=== PATIENT | female | born 1970 | race Caucasian/White ===

== ENCOUNTER → 2017-12-24 | Outpatient (CLI) | payer MEDICAID ==
[~2017-12-24] MED LIST: BUSPIRONE HCL10 MG PO; BUTALB-APAP-CA1 EACH PO; COMBIVENT INH; ESTRADIOL 1 MG T1 M1 PO; HYDROXYZINE HCL25 M1 PO; LAMICTAL 25 MG25 M1 PO; MOBIC15 MG PO; OMEPRAZOLE 20 M20 M1 PO; PROZAC20 MG PO; SINGULAIR 10 MG10 M1 PO; SYNTHROID150 MCG PO; TRAMADOL 50 MG50 MG PO; ZANAFLEX2 MG PO
[2017-12-24 10:34] LABS: ABSOLUTE EOSINOPHILS 0.1 thou/uL (0.0-0.7); ABSOLUTE LYMPHOCYTES 2.1 thou/uL (0.8-5.3); ABSOLUTE MONOCYTES 0.4 thou/uL (0.0-1.2); ABSOLUTE NEUTROPHILS 3.1 thou/uL (1.6-8.1); BASOPHILS 0.7 %; EOSINOPHILS 1.3 %; HEMATOCRIT 43.9 % (37.0-47.0); LYMPHOCYTES 37.4 %; MCHC 34.2 g/dL (28.0-37.0); MCV 96.5 fL (80.0-100.0); MONOCYTES 6.3 %; MPV 8.1 fl. (7.2-11.1); NUCLEATED RBCS 0 /100WBC; PLATELET COUNT* 240 thou/uL (150-400); POLYS 54.3 %; RBC 4.55 mil/uL (4.20-5.00); RDW-CV 14.4 % (10.5-14.5); WBC 5.7 thou/uL (4.0-11.0)
[2017-12-24 10:55] LABS: ALBUMIN 3.8 g/dL (3.4-5.0); CALCIUM 9.4 mg/dL (8.5-10.1); CREATININE 0.9 mg/dL (0.6-1.3); POTASSIUM 3.9 mmol/L (3.5-5.1); TOTAL BILIRUBIN 0.8 mg/dL (<0.1-1.0); TOTAL PROTEIN 8.6 g/dL (6.4-8.2)
== END ==
LOC: M.LAB 10:14
PROVIDERS: Family Medicine
DX: E03.9 Hypothyroidism, unspecified (principal)

== ENCOUNTER → 2018-01-13 | Outpatient (CLI) | payer MEDICAID ==
[2018-01-13 22:11] LABS: TESTOSTERONE 16 ng/dL (8-48)
== END ==
LOC: M.LAB 15:38
PROVIDERS: Family Medicine
DX: E03.9 Hypothyroidism, unspecified (principal); N95.1 Menopausal and female climacteric states

== ENCOUNTER → 2018-04-15 | Outpatient (CLI) | payer MEDICAID ==
[2018-04-15 16:14] LABS: HEMATOCRIT 40.1 % (37.0-47.0); HEMOGLOBIN 13.5 gm/dL (12.0-15.0); MCH 32.6 pg (26.0-34.0); MCHC 33.7 g/dL (28.0-37.0); MCV 96.6 fL (80.0-100.0); MPV 7.7 fl. (7.2-11.1); RBC 4.15 mil/uL (4.20-5.00); WBC 4.6 thou/uL (4.0-11.0)
[2018-04-15 16:25] LABS: APTT 27.3 Seconds (25.0-31.3); INR 0.9; PROTIME 9.4 Seconds (9.20-11.50)
== END ==
LOC: M.LAB 15:51
PROVIDERS: Family Medicine
DX: E03.9 Hypothyroidism, unspecified (principal); Z78.9 Other specified health status; F17.200 Nicotine dependence, unspecified, uncomplicated; Z72.89 Other problems related to lifestyle

== ENCOUNTER 2018-06-07 13:09 | Emergency (ER) | payer MEDICAID ==
[~2018-06-07] VITALS: Ht 162.6 cm; Wt 73.5 kg
[2018-06-07] MEDS ORDERED: SINGULAIR 10 MG10 M1 PO (13:22)
[2018-06-07] MEDS ORDERED: ESTRADIOL 1 MG T1 M1 PO (13:22)
[2018-06-07] MEDS ORDERED: MOBIC15 MG PO (13:23)
[2018-06-07] MEDS ORDERED: OMEPRAZOLE 20 M20 M1 PO (13:23)
[2018-06-07] MEDS ORDERED: BUSPIRONE HCL10 MG PO (13:23)
[2018-06-07] MEDS ORDERED: PROZAC20 MG PO (13:23)
[2018-06-07] MEDS ORDERED: LAMICTAL 25 MG25 M1 PO (13:24)
[2018-06-07] MEDS ORDERED: SYNTHROID150 MCG PO (13:24)
[2018-06-07] MEDS ORDERED: HYDROXYZINE HCL25 M1 PO (13:25)
[2018-06-07] MEDS ORDERED: COMBIVENT INH (13:25)
[2018-06-07] MEDS ORDERED: ZANAFLEX2 MG PO (13:26)
[2018-06-07] MEDS ORDERED: TRAMADOL 50 MG50 MG PO (13:26)
[2018-06-07] MEDS ORDERED: BUTALB-APAP-CA1 EACH PO (14:03)
[2018-06-07 14:19] VITALS: BP 131/68
== END 2018-06-07 14:20 | disposition home or self-care (01) ==
LOC: M.ERS 13:09
DX: S00.03XA Contusion of scalp, initial encounter (principal); H27.10 Unspecified dislocation of lens; Z90.710 Acquired absence of both cervix and uterus; W22.8XXA Striking against or struck by other objects, initial encounter; Y92.89 Other specified places as the place of occurrence of the external cause; Y93.89 Activity, other specified; Y99.8 Other external cause status; F17.210 Nicotine dependence, cigarettes, uncomplicated; Z88.2 Allergy status to sulfonamides

== ENCOUNTER → 2018-06-07 | Outpatient (CLI) | payer MEDICAID | LOC: M.LAB 12:50 | DX: E03.9 Hypothyroidism, unspecified (principal) ==

== ENCOUNTER 2018-06-20 21:41 | Emergency (ER) | payer MEDICAID ==
[~2018-06-20] VITALS: Ht 162.6 cm; Wt 67.6 kg
[2018-06-20 22:09] VITALS: BP 135/70
== END 2018-06-20 22:12 | disposition home or self-care (01) ==
LOC: M.ERS 21:41
DX: S61.011A Laceration without foreign body of right thumb without damage to nail, initial encounter (principal); E03.9 Hypothyroidism, unspecified; Z90.710 Acquired absence of both cervix and uterus; Z88.2 Allergy status to sulfonamides; W26.0XXA Contact with knife, initial encounter; Y93.89 Activity, other specified; Y92.89 Other specified places as the place of occurrence of the external cause; Y99.8 Other external cause status

== ENCOUNTER → 2018-10-18 | Outpatient (CLI) | payer MEDICAID | LOC: M.LAB 12:23 | DX: E03.9 Hypothyroidism, unspecified (principal) ==

== ENCOUNTER → 2018-12-06 | Outpatient (CLI) | payer MEDICAID ==
[2018-12-06 09:08] LABS: HEMATOCRIT 39.8 % (37.0-47.0); HEMOGLOBIN 13.2 gm/dL (12.0-15.0); MCH 33.5 pg (26.0-34.0); MCHC 33.1 g/dL (28.0-37.0); MPV 7.7 fl. (7.2-11.1); RBC 3.94 mil/uL (4.20-5.00); RDW-CV 13.4 % (10.5-14.5); WBC 4.3 thou/uL (4.0-11.0)
[2018-12-06 09:18] LABS: ALBUMIN 3.4 g/dL (3.4-5.0); CALCIUM 9.2 mg/dL (8.5-10.1); CREATININE 0.8 mg/dL (0.6-1.3); POTASSIUM 4.2 mmol/L (3.5-5.1); TOTAL BILIRUBIN 0.4 mg/dL (<0.1-1.0); TOTAL PROTEIN 7.6 g/dL (6.4-8.2)
== END ==
LOC: M.LAB 08:41
PROVIDERS: Family Medicine
DX: R10.9 Unspecified abdominal pain (principal); E03.9 Hypothyroidism, unspecified

== ENCOUNTER → 2018-12-10 | Outpatient (CLI) | payer MEDICAID | LOC: M.ULTRA 08:43 | DX: R10.9 Unspecified abdominal pain (principal) ==

== ENCOUNTER → 2019-01-14 | Outpatient (CLI) | payer MEDICAID | LOC: M.NUC 07:08 | DX: R10.11 Right upper quadrant pain (principal) ==

== ENCOUNTER 2019-02-03 15:38 | Emergency (ER) | payer MEDICAID ==
[~2019-02-03] VITALS: Ht 162.6 cm; Wt 73.5 kg
[2019-02-03] MEDS ORDERED: ULTRAM 50MG TAB50 MG PO (15:43)
[2019-02-03] MEDS ORDERED: ABILIFY 5 MG TAB5 M1 PO (15:44)
[2019-02-03] MEDS ORDERED: PROZAC20 MG PO (15:44)
[2019-02-03] MEDS ORDERED: COMBIVENT INH (15:45)
[2019-02-03] MEDS ORDERED: HYDROXYZINE HCL25 M1 PO (15:47)
[2019-02-03] MEDS ORDERED: ZANAFLEX4 MG PO (15:48)
[2019-02-03 16:16] LABS: ABSOLUTE LYMPHOCYTES 1.6 thou/uL (0.8-5.3); ABSOLUTE MONOCYTES 0.4 thou/uL (0.0-1.2); ABSOLUTE NEUTROPHILS 4.3 thou/uL (1.6-8.1); BASOPHILS 0.6 %; EOSINOPHILS 0.4 %; HEMATOCRIT 39.8 % (37.0-47.0); HEMOGLOBIN 13.6 gm/dL (12.0-15.0); LYMPHOCYTES 25.4 %; MCH 33.9 pg (26.0-34.0); MCHC 34.2 g/dL (28.0-37.0); MCV 99.2 fL (80.0-100.0); NUCLEATED RBCS 0 /100WBC; PLATELET COUNT* 262 thou/uL (150-400); POLYS 67.6 %; RBC 4.01 mil/uL (4.20-5.00); RDW-CV 13.5 % (10.5-14.5); WBC 6.3 thou/uL (4.0-11.0)
[2019-02-03 16:30] LABS: URINE BILIRUBIN NEGATIVE (Negative); URINE BLOOD NEGATIVE (Negative); URINE CLARITY CLEAR; URINE COLOR YELLOW; URINE GLUCOSE-RANDOM NEGATIVE (Negative); URINE KETONES NEGATIVE (Negative); URINE LEUKOCYTES-REFLEX NEGATIVE (Negative); URINE NITRITE-REFLEX NEGATIVE (Negative); URINE PROTEIN NEGATIVE (Negative); URINE SPECIFIC GRAVITY >= 1.030 (1.005-1.030); URINE UROBILINOGEN 0.2 E.U./dl (0.2-1.0)
[2019-02-03 16:34] LABS: ANION GAP 7 mmol/L (7-16); BUN 16 mg/dL (7-18); CALCIUM 9.5 mg/dL (8.5-10.1); CHLORIDE 104 mmol/L (98-107); CO2 27 mmol/L (21-32); CREATININE 0.9 mg/dL (0.6-1.3); GLUCOSE 111 mg/dL (70-99); POTASSIUM 3.5 mmol/L (3.5-5.1); SODIUM 138 mmol/L (136-145)
[2019-02-03 16:39] LABS: ALBUMIN 3.6 g/dL (3.4-5.0); ALKALINE PHOSPHATASE 108 U/L (46-116); LIPASE 67 U/L (73-393); SGOT 16 U/L (15-37); SGPT 19 U/L (30-65); TOTAL BILIRUBIN 0.6 mg/dL (<0.1-1.0); TOTAL PROTEIN 8.1 g/dL (6.4-8.2); TROPONIN-I LEVEL <0.06 ng/mL (<0.06)
[2019-02-03] MEDS ORDERED: ZOFRAN ODT4 MG DISSOLVE (17:45)
[2019-02-03] MEDS ORDERED: NORCO 5-325 TA1 EAC1 PO (17:45)
[2019-02-03 18:23] VITALS: BP 106/64
--- NOTE | 2019-02-04 16:39 | EKG ---
[place] [address] ELECTROCARDIOGRAM REPORT Name: ESME HAAS Room: [facility]#: [id number] Admission: 02/03/19 Attend Phys: Discharge: 02/03/19 Date of : 70 Report #: [id number] THIS REPORT FOR: //name// [facility] ED Test Date: 2019-02-03 Test Time: 16:04:26 Pat Name: ESME HAAS Department: Room: Gender: F Sql Report Developer: MICHELLE : 1970 Requested By: Antonio Zazueta Order Number: [id number] MD: Aaron Greene Measurements Intervals [place] Rate: 74 P: 23 FL: 146 QRS: 34 QRSD: 84 T: 39 QT: 420 QTc: 466 Interpretive Statements Sinus rhythm Nonspecific T abnormalities, anterior leads, consider ischemia No previous ECG available for comparison Electronically Signed On 02-04-2019 16:38:55 CDT by Aaron Greene [email or web address] <ELECTRONICALLY SIGNED> By: Aaron Greene MD, [facility] 02/04/19 1638 1604 1604 Aaron Greene MD, FACC /EPI
== END 2019-02-03 18:23 | disposition home or self-care (01) ==
LOC: M.ERS 15:38
PROVIDERS: Emergency Medicine Emergency Medical Services
DX: R10.12 Left upper quadrant pain (principal); E03.9 Hypothyroidism, unspecified; F17.210 Nicotine dependence, cigarettes, uncomplicated; Z90.710 Acquired absence of both cervix and uterus; Z88.2 Allergy status to sulfonamides

== ENCOUNTER 2019-05-17 13:13 | Inpatient (IN) | payer MEDICAID ==
[~2019-05-17] VITALS: Ht 160 cm; Wt 61.2 kg
[~2019-05-17 13:13] MED LIST changes: +ABILIFY 5 MG TAB5 M1 PO; +HYDROXYZINE HCL PO; +NORCO 5-325 TA1 EAC1 PO; +ULTRAM 50MG TAB50 MG PO; +ZANAFLEX4 MG PO; +ZOFRAN ODT4 MG DISSOLVE
[2019-05-17 13:21] VITALS: BP 124/76
[2019-05-17 14:57] LABS: ABSOLUTE LYMPHOCYTES 1.5 thou/uL (0.8-5.3); ABSOLUTE MONOCYTES 0.5 thou/uL (0.0-1.2); BASOPHILS 0.5 %; EOSINOPHILS 0.2 %; HEMATOCRIT 42.5 % (37.0-47.0); HEMOGLOBIN 14.6 gm/dL (12.0-15.0); LYMPHOCYTES 14.5 %; MCH 33.7 pg (26.0-34.0); MCHC 34.3 g/dL (28.0-37.0); MCV 98.2 fL (80.0-100.0); MPV 8.1 fl. (7.2-11.1); NUCLEATED RBCS 0 /100WBC; PLATELET COUNT* 280 thou/uL (150-400); POLYS 79.8 %; RBC 4.33 mil/uL (4.20-5.00); RDW-CV 13.5 % (10.5-14.5); WBC 10.1 thou/uL (4.0-11.0)
[2019-05-17 14:59] LABS: URINE BILIRUBIN NEGATIVE (Negative); URINE BLOOD NEGATIVE (Negative); URINE CLARITY CLEAR; URINE COLOR YELLOW; URINE GLUCOSE-RANDOM NEGATIVE (Negative); URINE KETONES NEGATIVE (Negative); URINE LEUKOCYTES-REFLEX NEGATIVE (Negative); URINE NITRITE-REFLEX NEGATIVE (Negative); URINE PROTEIN NEGATIVE (Negative); URINE UROBILINOGEN 0.2 E.U./dl (0.2-1.0)
[2019-05-17 15:08] LABS: CALCIUM 9.3 mg/dL (8.5-10.1); CREATININE 1.2 mg/dL (0.6-1.3); POTASSIUM 5.4 mmol/L (3.5-5.1)
[2019-05-17 15:13] LABS: ALBUMIN 3.7 g/dL (3.4-5.0); TOTAL BILIRUBIN 0.5 mg/dL (<0.1-1.0); TOTAL PROTEIN 8.5 g/dL (6.4-8.2)
[2019-05-17 16:00] VITALS: BP 152/88
[2019-05-17 16:55] VITALS: BP 147/92
[2019-05-17 19:48] VITALS: BP 116/66
[2019-05-18 08:00] VITALS: BP 116/52
--- NOTE | 2019-05-18 14:24 | EKG ---
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
[2019-05-18 20:10] VITALS: BP 126/64
[2019-05-19 07:50] VITALS: BP 156/74
[2019-05-19 14:28] VITALS: BP 156/74
[2019-05-27] MEDS ORDERED: ROXICODONE5 M2 PO (15:28)
[2019-05-27] MEDS ORDERED: ASPIRIN325 PO (15:34)
== END 2019-05-19 14:50 | disposition home or self-care (01) | DRG 563 ==
LOC: M.ERS 13:13 → M.ORTHSURG 15:09 → M.TBA-ER 15:09 → M.ORTHSURG 16:44
PROVIDERS: Nurse Practitioner Family; ADMIT Family Medicine
PROC: 2W3TX1Z Immobilization of Left Foot using Splint (ICD-10-PCS; principal; 2019-05-17)
DX: S82.852A Displaced trimalleolar fracture of left lower leg, initial encounter for closed fracture (principal); F11.20 Opioid dependence, uncomplicated; H54.62 Unqualified visual loss, left eye, normal vision right eye; E03.9 Hypothyroidism, unspecified; W18.39XA Other fall on same level, initial encounter; F17.210 Nicotine dependence, cigarettes, uncomplicated; G89.29 Other chronic pain; Z98.42 Cataract extraction status, left eye; Z90.710 Acquired absence of both cervix and uterus; Z98.41 Cataract extraction status, right eye; Z79.899 Other long term (current) drug therapy; Z88.2 Allergy status to sulfonamides; X50.1XXA Overexertion from prolonged static or awkward postures, initial encounter; Y93.89 Activity, other specified; Y92.89 Other specified places as the place of occurrence of the external cause; Y99.8 Other external cause status

== ENCOUNTER → 2019-05-27 | Day surgery (SDC) | payer MEDICAID ==
[~2019-05-27] MED LIST changes: +ASPIRIN325 PO; +ROXICODONE5 M2 PO
--- NOTE | ~2019-05-27 | OP ---
[address] [address] OPERATIVE REPORT Name: ESME HAAS Room: [facility]#: [id number] Admission: 05/27/19 Attend Phys: Poonam Carl DO Discharge: Date of : 70 Report #: [id number] THIS REPORT FOR: //name// CC: Poonam Jaime DICTATED BY: Theodore Oseguera DO DATE OF SERVICE: 05/27/2019 Theodore Oseguera DO, dictating operative report for Dr. Poonam Carl. PREOPERATIVE DIAGNOSIS: Left trimalleolar ankle fracture dislocation. POSTOPERATIVE DIAGNOSIS: Left trimalleolar ankle fracture dislocation. SURGEON: Poonam Carl DO CAR SHUNTER: Theodore Oseguera DO OPERATIONS PERFORMED: 1. Open reduction and internal fixation of left posterior malleolus. 2. Open reduction and internal fixation of left lateral malleolus. 3. Open reduction and internal fixation of left medial malleolus. 4. Intraoperative fluoroscopy less than 1 hour. ANESTHESIA TYPE: General with popliteal block and post-procedural local administration. ESTIMATED BLOOD LOSS: 10 mL. SPECIMENS REMOVED: None. COMPLICATIONS: None. ANTIBIOTICS: A 2 grams Ancef preoperatively. TOURNIQUET: 95 minutes at 250 mmHg. IMPLANTS: Arthrex one-third tubular plate and posterolateral distal fibular locking plate and 4.0 cannulated screw. INDICATIONS FOR PROCEDURE: The patient is a pleasant 49-year-old female, who unfortunately on 05/17/2019 had a fall resulting in a left ankle injury. Evaluation at the [facility] Emergency Department showed a left trimalleolar ankle fracture dislocation. This was reduced in the Emergency Room [address] [place] [address] OPERATIVE REPORT Name: ESME HAAS Room: [facility].#: [id number] Admission: 05/27/19 Attend Phys: Poonam Carl DO Discharge: Date of : 70 Report #: [id number] and she filled up with us as an outpatient. Appropriate time was allotted for soft tissue swelling resides in the ankle. Skin was wrinkling appropriately in her most recent clinic followup. Recommendation was made for surgical fixation of the left ankle. We discussed the indications for procedure and our options including nonoperative management and the risks and benefits of the surgery including but not limited to damage neurovascular structures, postoperative infection, possible failure of implants, possible need for repeat surgery in the future, positive postoperative debility secondary to ankle injury, continuation of pain, postoperative DVT, pulmonary embolism, MT, or any other imponderables secondary to being taken back to the operative suite. The patient expressed her understanding of the aforementioned and did wish to proceed. DESCRIPTION OF PROCEDURE: The patient was met in the preoperative area where the correct side was marked. She was then taken back to the operative suite and given the benefit of general anesthesia. A pneumatic tourniquet was applied to the left proximal thigh. The patient was then flipped on to the surgical table in a prone position where all bony prominences were well padded and soft tissue structures were free of pressure. Anesthesia verified appropriate airway and had position. The left lower extremity was then sterilely prepped and draped in normal standard fashion. A timeout was performed, which the correct patient, side, site, procedure to be performed and antibiotics in the form of 2 grams Ancef being given and was agreed upon by all participating. The procedure was then begun. The left lower extremity was exsanguinated with Esmarch tourniquet and the tourniquet to the left thigh was subsequently insufflated to 250 mmHg. This was ultimately inflated for approximately 95 minutes. A standard posterolateral approach to the ankle was made with a #15 blade scalpel was used to make the incision through the skin and subcutaneous tissue. Blunt and scissor dissection were then taken down to the posterior aspect of the tibia, making sure to avoid any neurovascular structures encountered. The posterior malleolar fracture was encountered. The fracture site was debrided of periosteum and hematoma. Direct pressure on the posterior malleolus appeared to reduce anatomically. This was verified on AP and lateral radiographs. A one-third tubular plate was put into position with an Arthrex P V-tach and the first hole just proximal to the axilla of the fracture was drilled. This yielded good compression and reduction of our posterior malleolar fragment. A distal bicortical screw was then inserted to the most distal aspect of the one-third tubular plate and then the last drill hole was drilled proximally. Appropriate reduction on AP and lateral radiograph was confirmed showing good reduction of the ankle mortise with no significant articular step-off or incongruity about the fracture site. Attention was then turned to the lateral malleolus. Sharp dissection on the posterior aspect of the fibula was made and straight down to the fracture site. Periosteum hematoma was removed from the fracture site and an Arthrex posterior distal fibular locking plate was put into position and the distal locking screws were drilled into the distal piece. One centrally drilled hole proximal to the fragment with a cortical screw was used to gain a little bit of fibular length and distraction at the fracture site, [address] [address] OPERATIVE REPORT Name: ESME HAAS Room: [facility]#: [id number] Admission: 05/27/19 Attend Phys: Poonam Carl DO Discharge: Date of : 70 Report #: [id number] which yielded appropriate fibular length and anatomic reduction both grossly and radiographically. We then turned our attention medially. The medial malleolus was marked off with a skin marker and a 15 blade scalpel was used to make a longitudinal incision over the medial malleolus with sharp dissection through the skin and subcutaneous tissue. The medial malleolar fragment was debrided of periosteum hematoma and held in reduction with a dental pick. A K-wire was drilled through the distal aspect of the medial malleolus bicortically to the posterior cortex of the distal tibia. We were in the fracture fragment and out of the articular surface of the medial malleolus verified on x-ray. This was then measured and drilled with a partially threaded 55 mm screw. Good compression and bite was obtained showing good reduction of the medial malleolus on x-ray. Afterwards, rotation stress testing of the ankle was performed, which did not appear to have any residual diastasis or instability about the ankle without any concern for residual syndesmotic injury. The decision was made not to do any syndesmotic fixation at this time. The medial and lateral wounds were then thoroughly irrigated with normal saline. A 0 Vicryl was used to approximate the deep tissue on the medial aspect over the medial malleolus as well as the peroneal retinaculum and fascia on the lateral aspect. A 2-0 Monocryl was used to proximate the subcutaneous tissue in simple inverted fashion both medial and lateral incisions were then followed by a running 3-0 nylon suture. Approximately 30 mL of 0.25% Marcaine was injected into the medial and lateral malleolus incision sites. The Xeroform, 4 x 4s, and ABDs were then applied and the tourniquet was let down. A posterior splint was applied to the left lower extremity. All sponge and needle counts were correct x 2. The patient was awoken from general anesthesia after being transferred supine onto her ambulatory cart. She was transferred to the PACU in stable condition. By: [id number] Carl DO /oliver
--- NOTE | 2019-05-27 15:00 | NUR ---
NOTIFIED BY MARIO MÁRQUEZ/PACU ON 05/26 THAT PT.COMING IN FOR SURGERY TODAY AND WOULD NEED A KNEE SCOOTER. ATTEMPTED TO GET A KNEE SCOOTER AUTH'D BY [place] [employer]. THEY SAID THEY DO AUTH KNEE SCOOTER BUT WOULD NEED ORDER, ETC. CM CALLED [employer] [facility] TODAY. THEY SAID [place] [employer] NEVER PAYS FOR KNEE SCOOTERS. NOTIFIED MARIO RODRIGUEZ/PACU. SHE SPOKE WITH . HE SAID IF SHE COULD NOT GET KNEE SCOOTER, A WALKER WOULD BE OK. TOLD JENNIFER PT.RECEIVED [facility]WW IN APR. WHEN SHE WAS INPT. FAXED HER PRICES TO RENT OR PURCHASE KNEE SCOOTER. SHE WILL GIVE TO PT.,IF SHE WOULD LIKE TO OBTAIN ONE ON HER OWN.
== END | disposition home or self-care (01) ==
LOC: M.SUR 06:45
DX: S82.852A Displaced trimalleolar fracture of left lower leg, initial encounter for closed fracture (principal); E03.9 Hypothyroidism, unspecified; F17.210 Nicotine dependence, cigarettes, uncomplicated; W19.XXXA Unspecified fall, initial encounter; Y93.89 Activity, other specified; Y92.89 Other specified places as the place of occurrence of the external cause; Y99.8 Other external cause status; Z98.890 Other specified postprocedural states; Z88.2 Allergy status to sulfonamides; Z79.899 Other long term (current) drug therapy

== ENCOUNTER → 2019-09-22 | Outpatient (CLI) | payer MEDICAID ==
[2019-09-22 11:30] LABS: ALBUMIN 3.6 g/dL (3.4-5.0); CALCIUM 8.9 mg/dL (8.5-10.1); POTASSIUM 3.2 mmol/L (3.5-5.1); TOTAL BILIRUBIN 0.5 mg/dL (<0.1-1.0); TOTAL PROTEIN 8.3 g/dL (6.4-8.2)
== END ==
LOC: M.LAB 10:58
PROVIDERS: Family Medicine
DX: I10 Essential (primary) hypertension (principal); E78.5 Hyperlipidemia, unspecified

== ENCOUNTER → 2020-05-25 | Outpatient (CLI) | payer MEDICAID | LOC: M.LAB 09:51 | PROVIDERS: ATTEND Family Medicine | DX: E03.9 Hypothyroidism, unspecified (principal) ==

== ENCOUNTER → 2020-07-16 | Outpatient (CLI) | payer MEDICAID ==
[2020-07-16 11:02] LABS: ALBUMIN 3.3 g/dL (3.4-5.0); CALCIUM 8.9 mg/dL (8.5-10.1); CREATININE 0.9 mg/dL (0.6-1.3); POTASSIUM 3.9 mmol/L (3.5-5.1); TOTAL BILIRUBIN 0.3 mg/dL (<0.1-1.0); TOTAL PROTEIN 7.6 g/dL (6.4-8.2)
[2020-07-17 21:06] LABS: GLYCOHEMOGLOBIN (HGB A1C) 5.6 % (4.8-5.6)
== END ==
LOC: M.LAB 09:27
PROVIDERS: ATTEND Family Medicine
DX: R73.09 Other abnormal glucose (principal)

== ENCOUNTER → 2021-01-22 | Outpatient (CLI) | payer MEDICAID ==
[2021-01-22 10:53] LABS: ALBUMIN 3.5 g/dL (3.4-5.0); CALCIUM 8.9 mg/dL (8.5-10.1); CREATININE 0.9 mg/dL (0.6-1.3); POTASSIUM 4.1 mmol/L (3.5-5.1); TOTAL BILIRUBIN 0.4 mg/dL (<0.1-1.0)
== END ==
LOC: M.LAB 10:21
PROVIDERS: ATTEND Family Medicine
DX: E03.9 Hypothyroidism, unspecified (principal)